=== PATIENT | male | born 1950 | race Asian ===

== ENCOUNTER 2018-07-12 10:05 | Day surgery (SDC) | payer OTHER ==
[2018-07-12] MEDS ORDERED: LIDOCAINE 2% (SDV) 5 ML INJ (11:10)
[2018-07-12] MEDS ORDERED: PROPOFOL 40 ML (11:10)
== END 2018-07-12 16:30 | disposition home or self-care (01) ==
LOC: GIL 10:05
DX: Z12.11 Encounter for screening for malignant neoplasm of colon (principal); K64.8 Other hemorrhoids; D12.5 Benign neoplasm of sigmoid colon; D12.0 Benign neoplasm of cecum; E78.5 Hyperlipidemia, unspecified; I12.9 Hypertensive chronic kidney disease with stage 1 through stage 4 chronic kidney disease, or unspecified chronic kidney disease; E11.22 Type 2 diabetes mellitus with diabetic chronic kidney disease; N18.9 Chronic kidney disease, unspecified; E66.9 Obesity, unspecified; Z68.32 Body mass index [BMI] 32.0-32.9, adult
CPT/HCPCS: 45384; 82962; 88305